=== PATIENT | female | born 1985 | race Caucasian/White ===

== ENCOUNTER 2017-01-11 11:11 | Emergency (ER) | payer BC ==
[2017-01-11 11:24] VITALS: BP 129/88
--- NOTE | 2017-01-11 12:37 | RAD ---
INDICATION: Neck pain. COMPARISON: There are no prior studies available for comparison. TECHNIQUE: 5 views of the cervical spine were obtained including lateral, oblique, AP, open-mouth odontoid views. FINDINGS: C1-C7 are visualized. The vertebra are in normal alignment. No prevertebral soft tissue swelling or fracture is seen. Disc spaces appear maintained. There is mild uncinate process spurring present at the C3-C4 and C4-C5 levels. Neural foramen appear patent on both sides. IMPRESSION: MILD DEGENERATIVE DISC DISEASE.
--- NOTE | 2017-01-11 12:47 | UC ---
Neck Pain HPI - HPI Summary HPI Summary: Patient presents with complaints of worsening right sided neck pain that came on gradually and is nontraumatic. She states pain with any attempt of movement. She states the pain is a constant aching, that is more sharp with attempts of movement. She went to the chiropractor and they sent her in for xrays. She denies fever, headache, numbness or tingling of the arm. She has been taking tylenol with little relief. - History of Current Complaint Chief Complaint: UCGeneralIllness Stated Complaint: NECK PAIN Time Seen by Provider: 01/11/17 11:55 Hx Obtained From: Patient Hx Last Menstrual Period: iud Onset/Duration Of Injury/Symptoms: Days Mechanism Of Injury: No Known Trauma Timing: Constant Onset/Duration: Gradual Onset, Lasting Days Severity: Severe Pain Scale Used: 0-10 Numeric Location: Discrete At:, Radiates To: - right posterior shoulder. Character: Sharp, Aching, Stiff Aggravating Factors: Position Alleviating Factors: Heat Associated Signs & Symptoms: Positive: Negative - Risk Factors Meningitis Risk Factors: Negative - Allergies/Home Medications Allergies/Adverse Reactions: Allergies Allergy/AdvReac Type Severity Reaction Status Date / Time Penicillins Allergy Rash Verified 01/11/17 11:18 PMH/Surg Hx/FS Hx/Imm Hx Previously Healthy: Yes - Surgical History Surgical History: None - Family History Known Family History: Positive: None - denies any htn,cad, - Social History Occupation: Unemployed Lives: With Family Alcohol Use: None Substance Use Type: None Smoking Status (MU): Never Smoked Tobacco - Immunization History Most Recent Influenza Vaccination: unk Most Recent Tetanus Shot: unk Most Recent Pneumonia Vaccination: none Review Of Systems Musculoskeletal: Positive: Decreased ROM, Other: - right sided posterior nontraumatic neck pain. All Other Systems Reviewed And Are Negative: Yes Physical Exam Triage Information Reviewed: Yes Appearance: Pain Distress Vital Signs: Initial Vital Signs Temp 98.1 F 01/11/17 11:20 Pulse 86 01/11/17 11:20 Resp 18 01/11/17 11:20 BP 129/88 01/11/17 11:20 Pulse Ox 100 01/11/17 11:20 Vital Signs Reviewed: Yes Eye Exam: Normal ENT Exam: Normal Neck: Positive: Tenderness @ - right side paraspinal processes. rom decreased with extension of 10 degrss, no flexion, right or left lateral rotation accomplished. Midline cervical spine nontender to palpation. Upper extremitiy strength testing 4/5, vascular exam;strong radial and ulnar pulses, cap refill less that three seconds. Sensory no deficits. Respiratory Exam: Normal Musculoskeletal Exam: Normal Neurological Exam: Normal Neck Pain Course/Dx - Course Course Of Treatment: Patient presents with nontraumatic neck pain, xrays were obtained and read by the radiologist as negative, DJD. The patient is neuro- vasc intact. She presents with cervical stain and torticollis. She is being treated by her chiropractor. I treated with flexeril, and ibuprfen. If her symtpoms worsen persist, and do not improve as anticipated she will follow up with her PCP, and chiropractor. - Differential Dx/Diagnosis Differential Dx/HQI/PQRI: Sprain, Strain, Torticollis Provider Diagnoses: cervical stain. torticollis Discharge - Discharge Plan Condition: Stable Disposition: HOME Prescriptions: Cyclobenzaprine TAB* [Flexeril 10 MG TAB*] 10 mg PO TID PRN #30 tab MDD 3 PRN Reason: cervical stain Ibuprofen TAB* [Motrin TAB* 600 MG] 600 mg PO Q8H PRN #30 tab MDD 3 PRN Reason: cervical stain Patient Education Materials: Neck Pain (ED), Cervical Strain (ED) Referrals: Tristan Navarrete MD [Primary Care Provider] -
== END 2017-01-11 12:55 | disposition home or self-care (01) ==
LOC: UCEAST 11:11
DX: S16.1XXA Strain of muscle, fascia and tendon at neck level, initial encounter (principal); X58.XXXA Exposure to other specified factors, initial encounter; Y93.9 Activity, unspecified; Y92.9 Unspecified place or not applicable; M43.6 Torticollis; Z88.0 Allergy status to penicillin
CPT/HCPCS: 72050; 99212; G0463